=== PATIENT | female | born 1950 | race Caucasian/White ===

== ENCOUNTER → 2018-07-24 09:46 | Outpatient (CLI) | payer OTHER, SELFPAY ==
[2018-07-24 11:32] LABS: Blood Urea Nitrogen 26 mg/dL (7-17); Calcium 9.9 mg/dL (8.4-10.2); Carbon Dioxide 30 mmol/L (22-32); Chloride 102 mmol/L (98-107); Estimated Glomerular Filt Rate 55.3 mL/min (>60); Glucose 95 mg/dL (80-110); HEMOLYSIS < 15 (0-50); Potassium 4.3 mmol/L (3.4-5.1); Sodium 143 mmol/L (137-145)
== END ==
PROVIDERS: PCP Internal Medicine; Visit Provider Internal Medicine
DX: I10 Essential (primary) hypertension (principal)
CPT/HCPCS: 36415; 80048

== ENCOUNTER → 2018-07-28 09:44 | Outpatient (CLI) | payer OTHER, SELFPAY ==
--- NOTE | 2018-07-28 | DI.US.S_ITS ---
PROCEDURE: US CAROTID DOPPLER BI INDICATIONS: HYPERTENSION TECHNIQUE: Color and pulse Doppler interrogation was performed of both carotid systems, with image documentation and velocity measurements. COMPARISON: None. FINDINGS: Stenosis calculations are based on SRU (Society of Radiologists in Ultrasound) criteria. Right side: Brachial blood pressure: 138/87 mm Hg. Common carotid artery peak systolic velocity: 77 cm/sec. Internal carotid artery peak systolic velocity: 88 cm/sec. Internal carotid artery end diastolic velocity: 29 cm/sec. External carotid artery peak systolic velocity: 68 cm/sec. ICA/CCA peak systolic ratio: 1.2. Castro scale imaging description: Mild calcific and soft plaque Percent internal carotid artery stenosis: Less than 50% stenosis. Vertebral artery: Flow direction is antegrade. Left side: Brachial blood pressure: 139/86 mm Hg. Common carotid artery peak systolic velocity: 87 cm/sec. Internal carotid artery peak systolic velocity: 100 cm/sec. Internal carotid artery end diastolic velocity: 42 cm/sec. External carotid artery peak systolic velocity: 52 cm/sec. ICA/CCA peak systolic ratio: 1.1. Castro scale imaging description: A mild soft plaque Percent internal carotid artery stenosis: Less than 50% stenosis. Vertebral artery: Flow direction is antegrade. Additionally, on the left a thyroid nodule was identified with both soft tissue and calcified components, heterogeneous, measuring up to 2.3 x 1.7 x 1.7 cm. Biopsy appears warranted. IMPRESSION: 1. Less than 50% stenosis at the proximal internal carotid arteries bilaterally. 2. Note was made of a left thyroid calcified and soft tissue nodule measuring up to 2.3 x 1.7 x 1.7 cm, which warrants additional dedicated thyroid ultrasound and consideration of biopsy. Dictated by: Iker Santiago M.D. on 07/28/2018 at 12:50 Approved by: Iker Santiago M.D. on 07/28/2018 at 12:52
== END ==
PROVIDERS: PCP Internal Medicine; Visit Provider Internal Medicine
DX: I10 Essential (primary) hypertension (principal)
CPT/HCPCS: 93880

== ENCOUNTER → 2018-08-14 11:49 | Outpatient (CLI) | payer OTHER, SELFPAY ==
--- NOTE | 2018-08-14 | DI.MG.S_ITS ---
BILATERAL DIGITAL SCREENING MAMMOGRAM 3D/2D WITH CAD: 08/14/2018 CLINICAL: Routine screening. Comparison is made to exams dated: 03/11/2017 mammogram, 01/03/2015 mammogram, and 07/27/2011 mammogram - [facility]. There are scattered fibroglandular elements in both breasts. Current study was also evaluated with a Computer Aided Detection (CAD) system. No significant masses, calcifications, or other findings are seen in either breast. There has been no significant interval change. IMPRESSION: NEGATIVE There is no mammographic evidence of malignancy. A 1 year screening mammogram is recommended. This exam was interpreted at Station ID: [id number]. NOTE: For mammograms, a report in lay terms will be sent to the patient. Approximately 15% of breast malignancies will not be visualized mammographically. In the management of a palpable breast mass, a negative mammogram must not discourage biopsy of a clinically suspicious lesion. Electronically Signed By: Ely jean/j luis:08/14/2018 12:24:13 letter sent: Normal Exam ACR BI-RADS Category 1: Negative [id number]
== END ==
PROVIDERS: Family Provider Internal Medicine; PCP Internal Medicine; Visit Provider Internal Medicine
DX: Z12.31 Encounter for screening mammogram for malignant neoplasm of breast (principal)
CPT/HCPCS: 77063; 77067

== ENCOUNTER → 2018-08-15 11:08 | Outpatient (CLI) | payer OTHER, SELFPAY ==
--- NOTE | 2018-08-15 | DI.US.S_ITS ---
PROCEDURE: US THYROID INDICATIONS: Nontoxic single thyroid nodule TECHNIQUE: Real-time scanning was performed of the thyroid gland, with image documentation. COMPARISON: None. FINDINGS: Right: Thyroid lobe measures 3.8 x 1.0 x 1.4 cm, and is homogeneous in echotexture. Left: Thyroid lobe measures 4.8 x 1.4 x 1.8 cm, and is homogenous in echotexture. Isthmus: 2 mm thick. Nodule number: 1 Location: Mid to inferior left thyroid lobe Size: 1.7 x 1.6 x 2.1 cm. Composition: Solid Echogenicity: Hypoechoic Shape: wider than tall. Margins: Smooth Echogenic foci: present Total points: 6 ACR TI-RADS category: 4 Nodule number: 2 Location: Inferior right thyroid lobe Size: 7 x 7 x 6 mm. Composition: Solid Echogenicity: Hypoechoic Shape: wider than tall. Margins: Smooth Echogenic foci: none Total points: 4 ACR TI-RADS category: 4 IMPRESSION: 1. Moderately suspicious thyroid nodule in mid to Inferior pole of the left thyroid lobe. Fine needle aspiration biopsy under ultrasound guidance is suggested. 2. Moderately suspicious small inferior pole right thyroid nodule. Ultrasound followup is suggested at 1, 2, 3 and 5 years. ACR TI-RADS definitions and recommendations: TI-RADS 1 (benign): 0 points. FNA not needed. TI-RADS 2 (not suspicious): 2 points. FNA not needed. TI-RADS 3 (mildly suspicious): 3 points. * FNA if 2.5 cm or larger, follow up if 1.5 cm or larger (at 1, 3, and 5 years). TI-RADS 4 (moderately suspicious): 4-6 points. * FNA if 1.5 cm or larger, follow up if 1 cm or larger (at 1, 2, 3, and 5 years). TI-RADS 5 (highly suspicious): 7 points or more. * FNA if 1 cm or larger, follow up if 0.5 cm or larger (every year for 5 years). Dictated by: Norma Turk M.D. on 08/15/2018 at 12:39 Approved by: Norma Turk M.D. on 08/15/2018 at 12:48
== END ==
PROVIDERS: Family Provider Internal Medicine; PCP Internal Medicine; Visit Provider Internal Medicine
DX: E04.2 Nontoxic multinodular goiter (principal)
CPT/HCPCS: 76536

== ENCOUNTER → 2018-08-29 12:47 | Outpatient (CLI) | payer OTHER, SELFPAY ==
--- NOTE | 2018-08-29 | PATH_ITS ---
Note [facility] Accession Number: [id number] TESTS RESULT FLAG UNITS REF RANGE LAB Clinician Provided Cytology Information No. of containers..01 ThinPrep Vial No. of containers..18 Previously Prepared Cytology Slide LT THYROID NODULE DIAGNOSIS: LEFT THYROID NODULE: [place] CATEGORY I. NONDIAGNOSTIC: ACELLULAR SPECIMEN. Pathologist ICD10: 02 E04.1 02 Babita Thompson MD, Pathologist NPI- [id number] Matheus Bradshaw, Blade Worker ([facility]) 01 30 CC, COLORLESS, CLEAR REC'D 9 ALCOHOL FIXED SLIDES AND 9 QUICK STAINED SLIDES AND 1 RNA VIAL FOR FURTHER TESTING. /VANCE FLAG LEGEND: L-Low Normal,H-High Normal,LL-Alert Low,HH-Alert High <-Panic Low,>-Panic High,A-Abnormal,AA-Critical Abnormal Performed at: 01 =Z [facility] [address], [place] [address] Renny Kraus MD, 02 [facility] [address] [place] [id number] Babita Thompson MD, Performed at: 01 [facility] [address], [place], [place] [id number] MD Renny Kraus MD Phone: [phone]
--- NOTE | 2018-08-29 | DI.US.S_ITS ---
PROCEDURE: US FINE NEEDLE ASPIRATION INDICATIONS: LEFT THYROID NODULE TECHNIQUE: The indications, alternatives, benefits, risks, and complications of the procedure were explained to the patient. Written informed consent was obtained and placed in the chart. The thyroid region was examined sonographically and a site was chosen for ultrasound guided percutaneous sampling. The skin was prepared and draped in the usual fashion, and anesthetized with 1% lidocaine infiltrated from the skin down to the thyroid gland. Multiple passes were then performed, with contents emptied into an appropriate pathology specimen container. A bandage was applied to the area of access at completion of the study. COMPARISON: None. FINDINGS: Location(s) of lesion(s) sampled: Dominant nodule lower half of the left thyroid lobe [place]: 25 gauge hypodermic needles. Number of passes: 10 Medications: 1% lidocaine for local anaesthesia. Complications: None. IMPRESSION: Successful ultrasound-guided thyroid nodule fine needle aspiration, with cytology results pending. Please see chart below for management recommendations based on cytology results. [place] [facility] ReportingRecommendationsNon-diagnostic* Repeat US-guided FNA, with on-site cytology evaluation if possible. * Repeated non-diagnostic nodules without high suspicion US features: close observation vs surgical consult. * Consider surgery if nodule has high suspicion US features, grows >20% in 2 dimensions on followup, or patient has clinical risk factors for malignancy. Benign* If nodule has high suspicion US features: repeat US and FNA within 12 months. * If nodule has low to intermediate suspicion US features: repeat US at 12-24 months. If nodule grows (20% increase in at least 2 dimensions, with minimal increase of 2 mm or >50% change in volume), or development of new suspicious US features, then repeat FNA or continue followup. * If nodule has very low suspicion US features: followup US at >24 months. Atypia of undetermined significance, follicular lesion of undetermined significanceRepeat FNA, molecular testing, followup US, or surgical consult.Follicular neoplasm, suspicious for follicular neoplasmSurgical consult; also consider molecular testing. Suspicious for malignancySurgical consult.MalignantSurgical consult. Dictated by: Iker Santiago M.D. on 08/29/2018 at 15:06 Approved by: Iker Santiago M.D. on 08/29/2018 at 15:07
== END ==
PROVIDERS: PCP Internal Medicine; Visit Provider Internal Medicine
DX: E04.1 Nontoxic single thyroid nodule (principal)
CPT/HCPCS: 10022; 76942

== ENCOUNTER → 2018-11-27 11:09 | Outpatient (CLI) | payer OTHER, SELFPAY ==
--- NOTE | 2018-11-27 | DI.RAD.S_ITS ---
PROCEDURE: FL BARIUM SWALLOW INDICATIONS: GERD COMPARISON: [facility] , BARIUM SWALLOW, 12/21/2011, 8:38. FINDINGS: Function: Normal swallowing mechanism. Numerous mild tertiary contractions of the distal esophagus in the upright position. There was normal esophageal motility in the recumbent position, however there was small to moderate amount of inducible gastroesophageal reflux. Morphology: No proximal esophageal diverticula. Air-contrast images demonstrate normal mucosal morphology. Single contrast views show no esophageal strictures, extrinsic mass effects, or diverticula. No hiatal hernia. Limited images of the stomach demonstrate normal appearance. Surgical clips in the gallbladder fossa. IMPRESSION: Small to moderate amount of gastroesophageal reflux in the recumbent position, but no hiatal hernia. Tertiary contractions in the distal esophagus without intraesophageal reflux. Dictated by: Reta Diehl M.D. on 11/27/2018 at 12:15 Approved by: Reta Diehl M.D. on 11/27/2018 at 12:26
== END ==
PROVIDERS: PCP Internal Medicine; Visit Provider Otolaryngology
DX: K21.9 Gastro-esophageal reflux disease without esophagitis (principal)
CPT/HCPCS: 74220

== ENCOUNTER 2019-01-11 08:23 | Day surgery (SDC) | payer OTHER, SELFPAY ==
[2019-01-11] VITALS (20 sets, daily range): BP systolic 114–167; BP diastolic 68–107; PULSE 64–132; RESP 10–18; TEMP 36–36.8; O2SAT 94–99; BMI 32.2
[2019-01-11] MEDS: SODIUM CHLORIDE 0.9% 1,000 ML 100 ML IV (09:22)
--- NOTE | 2019-01-11 10:53 | PM.HP.1 ---
History of Present Illness Date Patient Seen: 01/11/19 Time Patient Seen: 10:53 Chief complaint: Colonoscopy Narrative: Wonderful 68-year-old lady who presents for his 1st screening colonoscopy. She denies any problems or symptoms related to the function of her GI tract. She reports she is feeling well this morning and is ?in the zone?. She denies any family history of colon or rectal malignancy or any other GI malignancy. Patient History Social History household members: spouse and significant other Family & Social History Social History: household members spouse,significant other Meds Home Medications Medication Instructions Recorded Confirmed Type Crestor 20 mg PO DAILY 01/11/19 01/11/19 History Allergies Allergy/AdvReac Type Severity Reaction Status Date / Time No Known Drug Allergies Allergy Verified 01/11/19 09:04 Review of Systems Review of Systems All systems reviewed & are unremarkable except as noted in HPI and below Exam Vital Signs (past 8 hours): - 01/11/19 09:05 Temperature 97.6 F Pulse Rate 74 Respiratory Rate 15 Blood Pressure 138/82 Pulse Oximetry 99 Oxygen Delivery Method Room Air Narrative Exam Narrative: One full 68-year-old lady who appears younger than her stated age HEENT: Normocephalic and atraumatic, pupils equal round reactive to light accommodation with anicteric sclera Lungs: Clear bilaterally Heart: Regular rate and rhythm Abdomen: Soft, nontender, active bowel sounds Extremities: Warm well perfused Assessment & Plan Assessment & Plan narrative: Wonderful 68-year-old lady here for her 1st screening colonoscopy. We discussed the risks and benefits of colonoscopy and the patient expressed a desire to complete the procedure today.
[2019-01-11] MEDS: MIDAZOLAM 5 MG/5 ML VIAL IV (11:00)
[2019-01-11] MEDS: fentaNYL 250 MCG/5 ML INJ IV (11:00)
--- NOTE | 2019-01-11 11:21 | PM.OP.1 ---
Operative Date/Time/Diagnoses Date of procedure: 01/11/19 Time of procedure: 11:21 Pre-op diagnosis: Screening Post-op diagnosis: same Procedure & Clinicians Procedure: Colonoscopy to the cecum Same procedure as scheduled: Yes Indications: No prior colonoscopy Surgeon: Annabel King Anesthesia Type: Sedation (Versed 8 mg; fentanyl 250 micro g) Operative Notes Findings: 1. Adequate prep 2. No polyps or mass lesions 3. No AV malformations 4. Tortuous sigmoid and transverse colons 5. Decreased external anal sphincter tone 6. Grade 1 internal hemorrhoids Closure Type: not applicable Specimen(s): none sent Procedure in detail: After obtaining informed consent, the patient was brought to the GI suite and placed in the left lateral decubitus position on the examination table. After placement of appropriate monitors, the patient was given incremental doses of Versed and Fentanyl until an appropriate level of sedation was achieved. A time out was held per SCOAP protocol. A digital rectal examination was performed and did not reveal any masses or obstructing lesions. The colonoscope was gently passed into the patient's anus and the entire colon navigated to the level of the cecum with mild difficulty due to colon tortuosity. Once in the cecum, the scope was withdrawn being sure to go before and beyond all mucosal folds and prominences and get an excellent examination. The findings are noted above. At the level of the rectal vault, the scope was retroflexed and the internal anal canal was examined. The scope was straightened and air aspirated from the colon. The instrument was removed from the patient's body and the procedure was concluded. The patient was allowed to awaken from sedation without difficulty and taken to the post-anesthesia care unit in good condition. Total sedation time was 23 minutes Total withdrawal time was 11 minutes Complications: none Condition: stable Disposition: PACU Plan for aftercare: 1. Discharge to home 2. Plan for next colonoscopy in 10 years or as clinically indicated
[2019-01-11] MEDS: ONDANSETRON 4 MG/2 ML INJ IV (11:43)
[2019-01-11] MEDS: METOCLOPRAMIDE 10 MG/2 ML INJ IV (12:46)
--- NOTE | 2019-01-11 13:41 | SUR.PHASEI ---
pt continues to have nausea and vomiting (dry heaves), Dr King is aware, orders received, comfort measures continue
[2019-01-11] MEDS: DRONABINOL 2.5 MG CAPSULE PO (14:00)
--- NOTE | 2019-01-11 14:09 | SUR.PHASEI ---
DR BLACKBURN CALLED AND NOTIFIED OF PTS HR (SINUS ARRYTHMIA, HR 110-132) PT CONTINUES TO HAVE N/V, DENIES ANY CHEST PAIN OR SOB, WILL GIVE DECADRON FOR N/V AND GET EKG.
[2019-01-11] MEDS: DEXAMETHASONE 10 MG/ML VIAL 4 MG IV (14:10)
--- NOTE | 2019-01-11 14:48 | SUR.PHASEI ---
PT DENIES ANY CHEST PAIN OR SOB, CONTINUES TO HAVE IRREGULAR HR 100'S -130'S VOIDED APPROX 300CC IN BEDPAN, CONTINUES TO HAVE NAUSEA AND DRY HEAVES, DR BLACKBURN NOTIFIED OF EKG RESULTS, WILL TRANSFER PT TO ER. PT TO ER, BEDSIDE REPORT TO ASSISTANT PRINTER FLOOR COVERING.
== END 2019-01-11 14:39 | disposition home or self-care (01) ==
PROVIDERS: PCP Internal Medicine; Visit Provider Surgery
PROC: 0DJD8ZZ Inspection of Lower Intestinal Tract, Via Natural or Artificial Opening Endoscopic (ICD-10-PCS; CPT 45378; principal; 2019-01-11 10:45)
DX: Z12.11 Encounter for screening for malignant neoplasm of colon (principal); K64.0 First degree hemorrhoids; R11.2 Nausea with vomiting, unspecified; R00.2 Palpitations; I48.91 Unspecified atrial fibrillation; T41.45XA Adverse effect of unspecified anesthetic, initial encounter
CPT/HCPCS: G0121; 36415; 71045; 80053; 82550; 83690; 84484; 85025; 85610; 85730; 93005; 96361; 96374; 96375; 96376; 99152; 99285; J0780; J1100; J1200; J2250; J2405; J2765; J3010

== ENCOUNTER 2019-01-11 14:40 | Emergency (ER) | payer OTHER, SELFPAY ==
[2019-01-11] VITALS (9 sets, daily range): BP systolic 113–166; BP diastolic 66–108; PULSE 95–127; RESP 14–18; TEMP 36.4; O2SAT 92–96
--- NOTE | 2019-01-11 14:53 | DI.RAD.S_ITS ---
PROCEDURE: XR CHEST 1V INDICATIONS: chest pain TECHNIQUE: One view of the chest was acquired. COMPARISON: None. FINDINGS: Surgical changes and devices: None. Lungs and pleura: Lungs are clear. No pleural effusions or pneumothorax. Mediastinum: Mediastinal contours appear normal. Heart size is normal. Bones and chest wall: No suspicious bony lesions. Overlying soft tissues appear unremarkable. IMPRESSION: No acute cardiopulmonary disease. Dictated by: Norma Turk M.D. on 01/11/2019 at 15:25 Approved by: Norma Turk M.D. on 01/11/2019 at 15:28
[2019-01-11] MEDS: diphenhydrAMINE 50 MG/ML VIAL 12.5 MG IV (15:19)
[2019-01-11] MEDS: PROCHLORPERAZINE 10 MG/2 ML VIAL IV (15:19)
[2019-01-11] MEDS: dilTIAZem 5 MG/ML SDV 20 MG IV (15:20)
--- NOTE | 2019-01-11 15:31 | ED_ITS ---
HPI - Arrhythmia/Palpitations General Chief Complaint: Arrhythmia/Palpitations Stated Complaint: Afib Time Seen by Provider: 01/11/19 14:55 Source: patient Mode of arrival: wheelchair Limitations: no limitations History of Present Illness HPI narrative: Patient presents emergency department complaining of nausea and vomiting since undergoing anesthesia for a colonoscopy today. Patient states it was a routine colonoscopy, and that she was not having any symptoms whatsoever, prior to the procedure. She states that in the past, she has had issues with nausea and vomiting after general anesthesia. Patient denies fevers or abdominal pain. she states she has not eaten in 2 days, due to the upcoming procedure. No sick contacts. No chest pain or shortness of breath. patient has been feeling as though her heart is racing. EKG was done in the PACU, and patient was found to be in AFib with RVR. At that point, she was sent down to the emergency department. Patient states that she was taken back to the op erating room for her procedure at about 11:00 a.m. Related Data Home Medications Medication Instructions Recorded Confirmed Crestor 20 mg PO DAILY 01/11/19 01/11/19 Previous Rx's Medication Instructions Recorded diltiazem HCl [Cardizem CD] 240 mg PO DAILY #10 cap 01/11/19 ondansetron 4 mg PO QID PRN #10 tab 01/11/19 Allergies Allergy/AdvReac Type Severity Reaction Status Date / Time No Known Drug Allergies Allergy Verified 01/11/19 14:41 Review of Systems Constitutional Denies chills, Denies fever(s), Denies lethargy and Denies weakness Eyes Denies change in vision, Denies eye discharge, Denies irritation and Denies loss of vision ENT Ears, Nose, Mouth, and Throat: Denies change in voice, Denies neck pain and Denies sore throat Cardiovascular Denies chest pain, Denies irregular heart rhythm, Denies lightheadedness, Reports palpitations, Denies dyspnea, Denies dyspnea on exertion and Denies orthopnea Respiratory Denies cough, Denies dyspnea, Denies dyspnea on exertion and Denies wheezing Gastrointestinal Gastrointestinal: Denies abdominal pain, Denies change in bowel habits, Denies diarrhea, Reports nausea and Reports vomiting Genitourinary Denies hematuria, Denies flank pain, Denies urinary incontinence and Denies urinary urgency Musculoskeletal Denies neck pain Integumentary/Breasts Denies pruritus, Denies erythema, Denies rash and Denies wounds Neurologic Denies confusion, Denies loss of vision and Denies weakness Psychiatric Denies anxiety, Denies confusion, Denies depression, Denies homicidal ideation and Denies suicidal ideation Endocrine Reports palpitations Hematologic/Lymphatic Denies easy bruising Allergic/Immunologic Denies wheezing [facility] Medical History Healthy adult (Acute) Surgical History Status post colonoscopy (Acute) Social History household members: spouse and significant other Smoking Status: Unknown if ever smoked Family History Father Atrial fibrillation Brother Atrial fibrillation Social History household members: spouse and significant other Smoking Status: Unknown if ever smoked Exam Initial Vital Signs Initial Vital Signs: Vital Signs Temperature 97.6 F 01/11/19 14:42 Pulse Rate 127 H 01/11/19 14:42 Respiratory Rate 18 01/11/19 14:42 Blood Pressure 166/98 H 01/11/19 14:42 Pulse Oximetry 95 01/11/19 14:42 Const General: cooperative and well developed Nutritional Appearance: well nourished Orientation: alert, awake, oriented x3 and not confused Other: Patient appears uncomfortable but otherwise no apparent distress. [facility] Head: normocephalic and atraumatic Ears: external ears normal Nose: external nose normal and No nasal discharge Face and sinus: face symmetric and No dry mucous membranes Mouth: oral mucosae normal and moist mucous membranes Teeth and gingiva: dentition normal Eyes General: appearance normal, both eyes and all related structures Eyelids: eyelids normal Conjunctivae: conjunctivae normal Sclera: sclerae normal Pupils: PERRL EOM: EOM intact bilaterally Neck Neck: normal visual inspection, trachea midline, No lymphadenopathy, No midline deformity and No JVD Lymphatic: No lymphedema Chest Chest: normal inspection of the chest Resp Effort & Inspection: normal respiratory effort, able to speak in complete senten dustin, no respiratory distress and no use of accessory muscles Auscultation: clear to auscultation bilaterally, no rales, no rhonchi and no wheezes Cardio Rate: tachycardic Rhythm: abnormal rhythm irregularly irregular Heart Sounds: no click, no gallops, no murmurs and no rubs Pulses: normal peripheral pulses GI Inspection: non-distended Palpation: soft, no hepatosplenomegaly, No guarding, No pulsatile mass and No tender Back/Spine/Pelvis Back: No CVA tenderness Cervical Spine: cervical ROM normal and No pain with cervical ROM Thoracic/Lumbar Spine: thoracic and lumbar spine normal to inspection Skin General: no rashes or lesions noted, No jaundice and No petechiae Neuro General: alert, oriented x3, gait normal and no focal motor deficits Speech: speech normal Extrem General: full ROM, no clubbing, cyanosis or edema, no pedal edema and no calf tenderness Psych Appearance: well kempt Mental Status: mental status grossly normal Attitude: cooperative Thought Content: normal and suicidality Judgment: judgment good Course Course Narrative: Patient was treated with IV fluids, Compazine, and Benadryl in the emergency department for symptomatic relief. She was treated with diltiazem for her atrial fibrillation with RVR. She was worked up with labs and EKG, which were unremarkable, other than the atrial fibrillation. Patient was found to be feeling much better after treatment in the emergency department. Her heart rate did respond well to the Cardizem. She was given an oral dose prior to discharge, and a prescription for home and I discussed with her that she will need to follow up with her primary doctor and possibly cardiology regarding the atrial fib. Patient has noted that this does run in her family, but as she has never been diagnosed with this before, she will most likely need to have further evaluation. We have discussed the usual indications for return. Orders Ordered: Discontinued Medications Diltiazem HCl (Cardizem) 20 mg IV NOW ONE Stop: 01/11/19 15:17 Last Admin: 01/11/19 15:20 Dose: 20 mg Diltiazem HCl (Cardizem Cd) 240 mg PO NOW ONE Stop: 01/11/19 17:29 Last Admin: 01/11/19 17:35 Dose: 240 mg Diphenhydramine HCl (Benadryl) 12.5 mg IV NOW ONE Stop: 01/11/19 15:17 Last Admin: 01/11/19 15:19 Dose: 12.5 mg Sodium Chloride (Normal Saline 0.9%) 1,000 mls @ 1,000 mls/hr IV BOLUS ONE Stop: 01/11/19 16:25 Last Infusion: 01/11/19 16:30 Dose: 0 mls/hr Admin: 01/11/19 15:35 Dose: 1,000 mls/hr Prochlorperazine (Compazine) 10 mg IV NOW ONE Stop: 01/11/19 15:17 Last Admin: 01/11/19 15:19 Dose: 10 mg Vital Signs - 8 hr 01/11/19 14:42 01/11/19 15:05 01/11/19 15:19 Temperature 97.6 F Pulse Rate 127 H 124 H 124 H Respiratory Rate 18 15 Blood Pressure 166/98 H 136/108 H Blood Pressure [Left Arm] 138/108 H Pulse Oximetry 95 96 01/11/19 15:20 01/11/19 16:00 01/11/19 16:30 Temperature Pulse Rate 126 H 97 H 95 H Respiratory Rate 14 15 Blood Pressure 136/108 H Blood Pressure [Left Arm] 120/71 113/66 Pulse Oximetry 96 94 01/11/19 17:15 01/11/19 17:30 01/11/19 17:55 Temperature Pulse Rate 110 H 120 H 111 H Respiratory Rate 18 17 16 Blood Pressure 141/95 H Blood Pressure [Left Arm] 141/95 H 132/77 Pulse Oximetry 93 92 95 MDM - Arrhythmia/Palpitations Medical Records Attestation: I reviewed the patient's medical records. Lab Data Attestation: I reviewed the patient's lab results. Result diagrams: 01/11/19 15:20 01/11/19 15:20 Lab Results 01/11/19 01/11/19 01/11/19 Range/Units 15:20 15:20 15:20 WBC 10.3 (4.5-11.0) X10^3/uL RBC 4.86 (4.0-5.2) X10^6/uL Hgb 14.4 (12.0-16.0) g/dL Hct 43.4 (36-46) % MCV 89.3 (80-100) fL MCH 29.6 (26-34) PG MCHC 33.1 (30-36) % RDW 13.9 (11.6-14.8) % Plt Count 208 (150-400) X10^3/uL Neut % (Auto) 88.9 H (50-75) % Lymph % (Auto) 7.9 L (25-40) % [place] % (Auto) 2.5 L (3-14) % Eos % (Auto) 0.1 L (2-4) % Baso % (Auto) 0.6 (0-2) % Neut # (Auto) 9100 H (3208-2028) /uL Lymph # (Auto) 800 L (6773-4415) /uL [place] # (Auto) 300 (0-900) /uL Eos # (Auto) 0 (0-450) /uL Baso # (Auto) 100 (0-100) /uL PT 12.0 (10.1-12.7) SECONDS INR 1.0 (0.9-1.3) APTT 34 (26.4-36.2) SECONDS Sodium 140 (137-145) mmol/L Potassium 4.1 (3.4-5.1) mmol/L Chloride 106 (98-107) mmol/L Carbon Dioxide 24 (22-32) mmol/L BUN 10 (7-17) mg/dL Creatinine 0.70 (0.52-1.04) mg/dL Estimated GFR > 60.0 (>60) mL/min BUN/Creatinine Ratio 14.3 (6-22) Glucose 137 H (80-110) mg/dL Calcium 9.3 (8.4-10.2) mg/dL Total Bilirubin 0.6 (0.2-1.3) mg/dL AST 32 (14-36) IU/L ALT 37 (9-52) IU/L Alkaline Phosphatase 82 (38-126) U/L Total Creatine Kinase 58 (30-135) U/L CK-MB (CK-2) TNP CK-MB (CK-2) Rel Index TNP Troponin I < 0.012 (0.01-0.034) ng/mL Total Protein 8.0 (6.3-8.2) g/dL Albumin 4.7 (3.5-5.0) g/dL Globulin 3.3 (1.7-4.1) g/dL Albumin/Globulin Ratio 1.4 (1.0-2.8) Lipase 30 (23-300) U/L Imaging Data Chest x-ray: Radiologist's impression: PROCEDURE: XR CHEST 1V INDICATIONS: chest pain TECHNIQUE: One view of the chest was acquired. COMPARISON: None. FINDINGS: Surgical changes and devices: None. Lungs and pleura: Lungs are clear. No pleural effusions or pneumothorax. Mediastinum: Mediastinal contours appear normal. Heart size is normal. Bones and chest wall: No suspicious bony lesions. Overlying soft tissues appear unremarkable. IMPRESSION: No acute cardiopulmonary disease. Dictated by: Norma Turk M.D. on 01/11/2019 at 15:25 Approved by: Norma Turk M.D. on 01/11/2019 at 15:28 Discharge Plan Departure Patient Disposition: Home Clinical Impression: Atrial fibrillation Qualifiers: Atrial fibrillation type: unspecified Qualified Code(s): I48.91 - Unspecified atrial fibrillation Adverse reaction to anesthetic agent Qualifiers: Encounter type: initial encounter Qualified Code(s): T41.45XA - Adverse effect of unspecified anesthetic, initial encounter Discharge Date/Time: 01/11/19 17:56 Interventions: ED Discharge Assessment Last Done: 01/11/19 17:55 Instructions: DI for Atrial Fibrillation Activity Restrictions/Additional Instructions: You have had a reaction to your anesthesia, and have also been found to be in atrial fibrillation, an irregular heart rhythm. We have started you on a medication for this, but you will need to follow up with your primary doctor and possibly, cardiology to determine further management. Please call your primary doctor's office tomorrow morning to set up an appointment to be seen as soon as possible to follow up your Emergency Department visit. Please take the nausea medicine, as needed for nausea, and the Cardizem for your atrial fibrillation. If you develop shortness of breath or chest pain, or if you notice that your heart is racing uncontrollably, you should return to the emergency department immediately. Prescriptions: New diltiazem HCl [Cardizem CD] 240 mg capsule,extended release 24hr 240 mg PO DAILY Qty: 10 RF: 0 ondansetron 4 mg tablet,disintegrating 4 mg PO QID PRN (Reason: nausea and vomiting) Qty: 10 RF: 0 No Action Crestor 20 mg PO DAILY RF: 0 Referrals: Syd Seals MD [Primary Care Provider] -
[2019-01-11 15:34] LABS: Add Manual Diff / Slide Review NO; Basophils Absolute Auto 100 /uL (0-100); Basophils Percent Auto 0.6 % (0-2); Eosinophils Absolute Auto 0 /uL (0-450); Eosinophils Percent Auto 0.1 % (2-4); Hematocrit 43.4 % (36-46); Hemoglobin 14.4 g/dL (12.0-16.0); Lymphocytes Absolute Auto 800 /uL (1100-4500); Lymphocytes Percent Auto 7.9 % (25-40); Mean Corpuscular HGB Conc 33.1 % (30-36); Mean Corpuscular Hemoglobin 29.6 PG (26-34); Mean Corpuscular Volume 89.3 fL (80-100); Monocytes Absolute Auto 300 /uL (0-900); Monocytes Percent Auto 2.5 % (3-14); Neutrophils Absolute Auto 9100 /uL (1500-7000); Neutrophils Percent Auto 88.9 % (50-75); Platelet Count 208 X10^3/uL (150-400); Red Blood Cell Count 4.86 X10^6/uL (4.0-5.2); Red Cell Distribution Width 13.9 % (11.6-14.8); White Blood Cell Count 10.3 X10^3/uL (4.5-11.0)
[2019-01-11] MEDS: SODIUM CHLORIDE 0.9% 1,000 ML 1000 ML IV (15:35)
[2019-01-11 15:51] LABS: PTT Partial Thromboplastin Tim 34 SECONDS (26.4-36.2)
[2019-01-11 15:53] LABS: Alanine Aminotransferase 37 IU/L (9-52); Albumin 4.7 g/dL (3.5-5.0); Albumin Globulin Ratio 1.4 (1.0-2.8); Alkaline Phosphatase 82 U/L (38-126); Aspartate Aminotransferase 32 IU/L (14-36); BUN Creatinine Ratio 14.3 (6-22); Bilirubin Total 0.6 mg/dL (0.2-1.3); Blood Urea Nitrogen 10 mg/dL (7-17); Calcium 9.3 mg/dL (8.4-10.2); Carbon Dioxide 24 mmol/L (22-32); Chloride 106 mmol/L (98-107); Creatine Kinase 58 U/L (30-135); Estimated Glomerular Filt Rate > 60.0 mL/min (>60); Globulin 3.3 g/dL (1.7-4.1); Glucose 137 mg/dL (80-110); HEMOLYSIS < 15 (0-50); Lipase 30 U/L (23-300); Potassium 4.1 mmol/L (3.4-5.1); Sodium 140 mmol/L (137-145)
[2019-01-11 16:04] LABS: Troponin I < 0.012 ng/mL (0.01-0.034)
--- NOTE | 2019-01-11 17:25 | PC.NURSE ---
HAM FACER Note: Assisted patient with bedside commode. Tolerated very well. Did not state any discomfort and did not see any noticeable changes or signs of distress with standing.
[2019-01-11] MEDS: dilTIAZem CD 240 MG CAP PO (17:35)
== END 2019-01-11 17:56 | disposition home or self-care (01) ==
PROVIDERS: Emergency Provider Emergency Medicine; PCP Internal Medicine
DX: I48.91 Unspecified atrial fibrillation (principal); R11.2 Nausea with vomiting, unspecified; T41.45XA Adverse effect of unspecified anesthetic, initial encounter
CPT/HCPCS: 36415; 71045; 80053; 82550; 83690; 84484; 85025; 85610; 85730; 93005; 96361; 96374; 96375; 96376; 99284; 99285; J0780; J1200

== ENCOUNTER → 2019-05-08 09:02 | Outpatient (CLI) | payer OTHER, SELFPAY ==
--- NOTE | 2019-05-08 | DI.US.S_ITS ---
PROCEDURE: US THYROID INDICATIONS: FOLLOW-UP NODULES TECHNIQUE: Real-time scanning was performed of the thyroid gland, with image documentation. COMPARISON: [facility], US, US THYROID, 08/15/2018, 11:26. FINDINGS: Right: Thyroid lobe measures 4.5 x 1.4 x 1.5 cm, and is homogeneous in echotexture. Left: Thyroid lobe measures 4.4 x 1.6 x 2.2 cm, and is homogenous in echotexture. Isthmus: 1-2 mm thick. Nodule number: 1 Location: Left inferior pole Size: 2.3 x 1.6 x 1.6 cm. (previously 1.7 x 1.6 x 2.1 cm) Composition: Solid Echogenicity: Hypoechoic Shape: wider than tall. Margins: Smooth, with peripheral calcification. Echogenic foci: None Total points: 4 ACR TI-RADS category: Moderately suspicious Nodule number: 2 Location: Right inferior pole Size: 0.8 x 0.8 x 0.5 cm. (previously 0.7 x 0.7 x0.6 cm) Composition: Solid Echogenicity: Isoechoic Shape: wider than tall. Margins: Smooth Echogenic foci: None Total points: 3 ACR TI-RADS category: Mildly suspicious IMPRESSION: Bilateral thyroid nodules. Further evaluation of the left thyroid nodule with ultrasound guided fine needle aspiration recommended. ACR TI-RADS definitions and recommendations: TI-RADS 1 (benign): 0 points. FNA not needed. TI-RADS 2 (not suspicious): 2 points. FNA not needed. TI-RADS 3 (mildly suspicious): 3 points. * FNA if 2.5 cm or larger, follow up if 1.5 cm or larger (at 1, 3, and 5 years). TI-RADS 4 (moderately suspicious): 4-6 points. * FNA if 1.5 cm or larger, follow up if 1 cm or larger (at 1, 2, 3, and 5 years). TI-RADS 5 (highly suspicious): 7 points or more. * FNA if 1 cm or larger, follow up if 0.5 cm or larger (every year for 5 years). Dictated by: Timbo Richardson M.D. on 05/08/2019 at 13:04 Approved by: Timbo Richardson M.D. on 05/08/2019 at 13:08
== END ==
PROVIDERS: PCP Internal Medicine
DX: E04.2 Nontoxic multinodular goiter (principal)
CPT/HCPCS: 76536

== ENCOUNTER → 2020-04-24 10:40 | Outpatient (CLI) | payer OTHER, SELFPAY ==
--- NOTE | 2020-04-24 | DI.US.S_ITS ---
PROCEDURE: US THYROID INDICATIONS: NONTOXIC SINGLE THYROID NODULE TECHNIQUE: Real-time scanning was performed of the thyroid gland, with image documentation. COMPARISON: [facility], US, US THYROID, 05/08/2019, 9:31. FINDINGS: Right: Thyroid lobe measures 4.2 x 1.3 x 1.2 cm, and is homogeneous in echotexture. Left: Thyroid lobe measures 5.0 x 1.5 x 1.9 cm, and is homogenous in echotexture. Isthmus: 1.8 mm thick. Nodule number: 1 Location: Left inferior Size: Unchanged at 2.3 x 1.6 x 1.6 cm. Composition: Solid Echogenicity: Hypoechoic Shape: wider than tall. Margins: Smooth Echogenic foci: Macrocalcifications Total points: 5 ACR TI-RADS category: Moderately suspicious Nodule number: 2 Location: Right inferior Size: Unchanged 2.8 x 0.5 x 0.8 cm. Composition: Solid Echogenicity: Isoechoic Shape: wider than tall. Margins: Smooth Echogenic foci: None Total points: 3 ACR TI-RADS category: Mildly suspicious IMPRESSION: Stable appearance of bilateral thyroid nodules. Recommend continued followup ultrasound as detailed below. ACR TI-RADS definitions and recommendations: TI-RADS 1 (benign): 0 points. FNA not needed. TI-RADS 2 (not suspicious): 2 points. FNA not needed. TI-RADS 3 (mildly suspicious): 3 points. * FNA if 2.5 cm or larger, follow up if 1.5 cm or larger (at 1, 3, and 5 years). TI-RADS 4 (moderately suspicious): 4-6 points. * FNA if 1.5 cm or larger, follow up if 1 cm or larger (at 1, 2, 3, and 5 years). TI-RADS 5 (highly suspicious): 7 points or more. * FNA if 1 cm or larger, follow up if 0.5 cm or larger (every year for 5 years). Dictated by: Ron JENNINGS Interpreted: Jeremias Diego MD on 04/24/2020 at 13:33 Approved by: Jeremias Diego M.D. on 04/24/2020 at 13:53
== END ==
PROVIDERS: PCP Internal Medicine; Referring Provider Internal Medicine; Visit Provider Internal Medicine
DX: E04.2 Nontoxic multinodular goiter (principal)
CPT/HCPCS: 76536

== ENCOUNTER 2020-07-04 13:41 | Emergency (ER) | payer OTHER, SELFPAY ==
[2020-07-04] VITALS (8 sets, daily range): BP systolic 122–167; BP diastolic 65–83; PULSE 61–73; RESP 13–24; O2SAT 99–100; BMI 25.7
--- NOTE | 2020-07-04 13:53 | DI.RAD.S_ITS ---
PROCEDURE: XR CHEST 1V INDICATIONS: chest pain TECHNIQUE: One view of the chest was acquired. COMPARISON: [facility], CR, XR CHEST 1V, 01/11/2019, 14:59. FINDINGS: Surgical changes and devices: None. Lungs and pleura: On this semiupright portable chest examination, no large pneumothorax or large pleural effusions are seen. No focal infiltrates are seen. Mediastinum: The cardiac contours are within normal limits. The aorta demonstrates calcification and tortuosity. Bones and chest wall: Age-appropriate bony degenerative changes are seen. No suspicious bony lesions. Overlying soft tissues appear unremarkable. IMPRESSION: Portable chest within normal limits. Dictated by: Charlie Lucas M.D. on 07/04/2020 at 13:25 Approved by: Charlie Lucas M.D. on 07/04/2020 at 13:26
[2020-07-04 14:44] LABS: Add Manual Diff / Slide Review NO; Basophils Absolute Auto 0 /uL (0-100); Basophils Percent Auto 0.8 % (0-2); Eosinophils Absolute Auto 100 /uL (0-450); Eosinophils Percent Auto 1.4 % (2-4); Hematocrit 38.8 % (36-46); Hemoglobin 13.1 g/dL (12.0-16.0); Lymphocytes Absolute Auto 1100 /uL (1100-4500); Lymphocytes Percent Auto 18.1 % (25-40); Mean Corpuscular HGB Conc 33.8 % (30-36); Mean Corpuscular Hemoglobin 30.5 PG (26-34); Monocytes Absolute Auto 400 /uL (0-900); Monocytes Percent Auto 6.6 % (3-14); Neutrophils Absolute Auto 4700 /uL (1500-7000); Neutrophils Percent Auto 73.1 % (50-75); Platelet Count 194 X10^3/uL (150-400); Red Blood Cell Count 4.31 X10^6/uL (4.0-5.2); Red Cell Distribution Width 13.5 % (11.6-14.8); White Blood Cell Count 6.4 X10^3/uL (4.5-11.0)
[2020-07-04 14:52] LABS: Prothrombin Time 12.1 SECONDS (10.1-12.7)
[2020-07-04 14:54] LABS: PTT Partial Thromboplastin Tim 38 SECONDS (26.4-36.2)
[2020-07-04 14:56] LABS: Alanine Aminotransferase 23 IU/L (<35); Albumin 4.1 g/dL (3.5-5.0); Albumin Globulin Ratio 1.4 (1.0-2.8); Alkaline Phosphatase 73 U/L (38-126); Aspartate Aminotransferase 31 IU/L (14-36); BUN Creatinine Ratio 30.5 (6-22); Bilirubin Total 0.3 mg/dL (0.2-1.3); Blood Urea Nitrogen 25 mg/dL (7-17); Calcium 9.5 mg/dL (8.4-10.2); Carbon Dioxide 28 mmol/L (22-32); Chloride 106 mmol/L (98-107); Creatine Kinase 60 U/L (30-135); Estimated Glomerular Filt Rate > 60.0 mL/min (>60); Glucose 95 mg/dL (80-110); HEMOLYSIS < 15 (0-50); Lipase 90 U/L (23-300); Potassium 4.4 mmol/L (3.4-5.1); Sodium 140 mmol/L (137-145); Total Protein 7.1 g/dL (6.3-8.2)
[2020-07-04 15:07] LABS: Troponin I < 0.012 ng/mL (0.01-0.034)
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
[2020-07-04] MEDS: ALBUTEROL HFA 200 PUFF/18 GM INH (COVID POS/VENT PTS) INH (16:14)
== END 2020-07-04 17:28 | disposition home or self-care (01) ==
PROVIDERS: Emergency Provider Emergency Medicine; PCP Internal Medicine
DX: J45.909 Unspecified asthma, uncomplicated (principal)
CPT/HCPCS: 36415; 71045; 80053; 82550; 83690; 84484; 85025; 85610; 85730; 93005; 94640; 99284; A9270

== ENCOUNTER → 2020-08-04 19:34 | Outpatient (ROUT) | payer OTHER, SELFPAY ==
[2020-08-04 20:23] LABS: Alanine Aminotransferase 21 IU/L (<35); Albumin 4.2 g/dL (3.5-5.0); Albumin Globulin Ratio 1.4 (1.0-2.8); Alkaline Phosphatase 62 U/L (38-126); Aspartate Aminotransferase 27 IU/L (14-36); BUN Creatinine Ratio 29.2 (6-22); Bilirubin Total 0.6 mg/dL (0.2-1.3); Blood Urea Nitrogen 26 mg/dL (7-17); Calcium 9.7 mg/dL (8.4-10.2); Carbon Dioxide 31 mmol/L (22-32); Chloride 104 mmol/L (98-107); Cholesterol 168 mg/dL (140-199); Estimated Glomerular Filt Rate > 60.0 mL/min (>60); Glucose 92 mg/dL (80-110); HDL Cholesterol 70 mg/dL (40-60); HEMOLYSIS < 15 (0-50); LDL Cholesterol Calculated 85 mg/dL (<100); Potassium 4.5 mmol/L (3.4-5.1); Sodium 140 mmol/L (137-145); Total Protein 7.2 g/dL (6.3-8.2); Triglycerides 63 mg/dL (35-150)
[2020-08-04 20:29] LABS: Add Manual Diff / Slide Review NO; Basophils Absolute Auto 100 /uL (0-100); Basophils Percent Auto 1.2 % (0-2); Eosinophils Absolute Auto 200 /uL (0-450); Eosinophils Percent Auto 3.3 % (2-4); Hematocrit 41.5 % (36-46); Hemoglobin 13.8 g/dL (12.0-16.0); Lymphocytes Absolute Auto 1300 /uL (1100-4500); Lymphocytes Percent Auto 23.8 % (25-40); Mean Corpuscular HGB Conc 33.3 % (30-36); Mean Corpuscular Hemoglobin 30.3 PG (26-34); Mean Corpuscular Volume 90.9 fL (80-100); Monocytes Absolute Auto 500 /uL (0-900); Monocytes Percent Auto 8.5 % (3-14); Neutrophils Absolute Auto 3600 /uL (1500-7000); Neutrophils Percent Auto 63.2 % (50-75); Platelet Count 205 X10^3/uL (150-400); Red Blood Cell Count 4.57 X10^6/uL (4.0-5.2); Red Cell Distribution Width 13.7 % (11.6-14.8); White Blood Cell Count 5.7 X10^3/uL (4.5-11.0)
== END ==
PROVIDERS: PCP Internal Medicine; Visit Provider Internal Medicine
DX: R10.11 Right upper quadrant pain (principal); E78.2 Mixed hyperlipidemia
CPT/HCPCS: 80053; 80061; 85025

== ENCOUNTER → 2020-09-15 10:20 | Outpatient (CLI) | payer OTHER, SELFPAY | PROVIDERS: PCP Internal Medicine; Referring Provider Internal Medicine; Visit Provider Internal Medicine | DX: M85.88 Other specified disorders of bone density and structure, other site (principal); Z78.0 Asymptomatic menopausal state; E07.9 Disorder of thyroid, unspecified; Z82.62 Family history of osteoporosis | CPT/HCPCS: 77080 ==

== ENCOUNTER → 2021-07-28 15:06 | Outpatient (CLI) | payer MEDICARE, SELFPAY ==
--- NOTE | 2021-07-28 | DI.MG.S_ITS ---
BILATERAL DIGITAL SCREENING MAMMOGRAM 3D/2D WITH CAD: 07/28/2021 CLINICAL: Routine screening. Comparison is made to exams dated: 08/14/2018 mammogram, 03/11/2017 mammogram, and 01/03/2015 mammogram - [facility]. There are scattered fibroglandular elements in both breasts. Current study was also evaluated with a Computer Aided Detection (CAD) system. No significant masses, calcifications, or other findings are seen in either breast. There has been no significant interval change. IMPRESSION: NEGATIVE There is no mammographic evidence of malignancy. A 1 year screening mammogram is recommended. This exam was interpreted at Station ID: [id number]. NOTE: For mammograms, a report in lay terms will be sent to the patient. Approximately 15% of breast malignancies will not be visualized mammographically. In the management of a palpable breast mass, a negative mammogram must not discourage biopsy of a clinically suspicious lesion. Electronically Signed By: Melecio Walker M.D., jr/j luis:07/28/2021 15:46:52 letter sent: Normal Exam ACR BI-RADS Category 1: Negative [id number]
== END ==
PROVIDERS: PCP Internal Medicine; Referring Provider Internal Medicine; Visit Provider Internal Medicine
DX: Z12.31 Encounter for screening mammogram for malignant neoplasm of breast (principal)
CPT/HCPCS: 77063; 77067

== ENCOUNTER → 2021-10-30 08:05 | Outpatient (CLI) | payer MEDICARE, SELFPAY ==
[2021-10-30 09:32] LABS: Add Manual Diff / Slide Review NO; Basophils Absolute Auto 0 /uL (0-100); Eosinophils Absolute Auto 100 /uL (0-450); Eosinophils Percent Auto 3.2 % (2-4); Hematocrit 38.8 % (36-46); Hemoglobin 13.2 g/dL (12.0-16.0); Lymphocytes Absolute Auto 1300 /uL (1100-4500); Lymphocytes Percent Auto 30.1 % (25-40); Mean Corpuscular Hemoglobin 30.2 PG (26-34); Mean Corpuscular Volume 88.8 fL (80-100); Monocytes Absolute Auto 300 /uL (0-900); Monocytes Percent Auto 6.7 % (3-14); Neutrophils Absolute Auto 2500 /uL (1500-7000); Platelet Count 189 X10^3/uL (150-400); Red Blood Cell Count 4.37 X10^6/uL (4.0-5.2); Red Cell Distribution Width 14.2 % (11.6-14.8); White Blood Cell Count 4.2 X10^3/uL (4.5-11.0)
[2021-10-30 10:06] LABS: Alanine Aminotransferase 16 IU/L (<35); Albumin Globulin Ratio 1.5 (1.0-2.8); Alkaline Phosphatase 53 U/L (38-126); Aspartate Aminotransferase 25 IU/L (14-36); BUN Creatinine Ratio 29.3 (6-22); Bilirubin Total 0.5 mg/dL (0.2-1.3); Blood Urea Nitrogen 24 mg/dL (7-17); Calcium 9.3 mg/dL (8.4-10.2); Carbon Dioxide 26 mmol/L (22-32); Chloride 110 mmol/L (98-107); Cholesterol 153 mg/dL (140-199); Estimated Glomerular Filt Rate > 60.0 mL/min (>60); Globulin 2.7 g/dL (1.7-4.1); Glucose 91 mg/dL (80-110); HDL Cholesterol 62 mg/dL (40-60); HEMOLYSIS < 15 (0-50); LDL Cholesterol Calculated 80 mg/dL (<100); Potassium 4.1 mmol/L (3.4-5.1); Sodium 141 mmol/L (137-145); Total Protein 6.7 g/dL (6.3-8.2); Triglycerides 53 mg/dL (35-150)
[2021-10-30 10:31] LABS: TSH w/ Reflex to FT4 3.17 uIU/mL (0.47-4.68)
[2021-11-02 16:40] LABS: Hep C Virus Ab w/Reflex Quant NEGATIVE s/c (NEGATIVE)
== END ==
PROVIDERS: PCP Internal Medicine; Referring Provider Internal Medicine; Visit Provider Internal Medicine
DX: E04.1 Nontoxic single thyroid nodule (principal); I10 Essential (primary) hypertension; E78.2 Mixed hyperlipidemia; Z11.59 Encounter for screening for other viral diseases
CPT/HCPCS: 36415; 80053; 80061; 84443; 85025; 86803

== ENCOUNTER → 2021-12-22 13:35 | Outpatient (CLI) | payer MEDICARE, SELFPAY ==
[2021-12-22 14:26] LABS: Alanine Aminotransferase 16 IU/L (<35); Albumin 4.1 g/dL (3.5-5.0); Albumin Globulin Ratio 1.4 (1.0-2.8); Alkaline Phosphatase 69 U/L (38-126); Aspartate Aminotransferase 26 IU/L (14-36); Bilirubin Total 0.3 mg/dL (0.2-1.3); Bilirubin Unconjugated 0.3 mg/dL (0.0-1.1); Globulin 2.9 g/dL (1.7-4.1); HEMOLYSIS < 15 (0-50)
== END ==
PROVIDERS: PCP Internal Medicine; Referring Provider Internal Medicine; Visit Provider Internal Medicine
DX: B35.1 Tinea unguium (principal)
CPT/HCPCS: 36415; 80076

== ENCOUNTER → 2021-12-31 14:36 | Outpatient (CLI) | payer MEDICARE, SELFPAY ==
--- NOTE | 2021-12-31 14:38 | DI.US.S_ITS ---
PROCEDURE: US THYROID INDICATIONS: THYROID NODULE TECHNIQUE: Real-time scanning was performed of the thyroid gland, with image documentation. COMPARISON: [facility], US, US THYROID, 04/24/2020, 10:58. FINDINGS: Right: Thyroid lobe measures 4.4 x 1.2 x 1.2 cm, and demonstrates a nodule inferiorly Left: Thyroid lobe measures 4.9 x 1.2 x 1.8 cm, and is demonstrates a nodule inferiorly. Isthmus: 2.6 mm thick. Nodule number: 1 Location: Left inferior thyroid Size: 2.1 x 1.3 x 1.5 cm. Composition: Solid Echogenicity: Hypoechoic Shape: wider than tall. Margins: Smooth Echogenic foci: Peripheral calcifications including a calcific nodule Total points: 7 ACR TI-RADS category: 5 Recommendations: Fine-needle aspiration Nodule number: 2 Location: Right inferior thyroid Size: 0.7 x 0.4 x 0.7 cm. Composition: Solid Echogenicity: Isoechoic Shape: wider than tall. Margins: Smooth Echogenic foci: None Total points: 3 ACR TI-RADS category: 3 Recommendations: No further follow-up necessary based on size. IMPRESSION: 1. Fine-needle aspiration of left inferior thyroid nodule is recommended as above. Dictated by: Isrrael Eldridge M.D. on 12/31/2021 at 15:17 Approved by: Isrrael Eldridge M.D. on 12/31/2021 at 17:01
== END ==
PROVIDERS: PCP Internal Medicine; Referring Provider Internal Medicine; Visit Provider Internal Medicine
DX: E04.2 Nontoxic multinodular goiter (principal)
CPT/HCPCS: 76536

== ENCOUNTER → 2022-06-25 08:53 | Outpatient (CLI) | payer MEDICARE, SELFPAY ==
[2022-06-25 10:00] LABS: Hematocrit 37.9 % (36-46); Hemoglobin 12.9 g/dL (12.0-16.0); Mean Corpuscular Hemoglobin 30.3 PG (26-34); Mean Corpuscular Volume 89.2 fL (80-100); Platelet Count 194 X10^3/uL (150-400); Red Blood Cell Count 4.24 X10^6/uL (4.0-5.2); White Blood Cell Count 4.7 X10^3/uL (4.5-11.0)
[2022-06-25 10:44] LABS: Alanine Aminotransferase 16 IU/L (<35); Albumin Globulin Ratio 1.5 (1.0-2.8); Alkaline Phosphatase 61 U/L (38-126); Aspartate Aminotransferase 24 IU/L (14-36); BUN Creatinine Ratio 29.3 (6-22); Bilirubin Total 0.4 mg/dL (0.2-1.3); Blood Urea Nitrogen 24 mg/dL (7-17); Calcium 9.3 mg/dL (8.4-10.2); Carbon Dioxide 27 mmol/L (22-32); Chloride 108 mmol/L (98-107); Cholesterol 138 mg/dL (140-199); Estimated Glomerular Filt Rate > 60 mL/min (>60); Globulin 2.7 g/dL (1.7-4.1); Glucose 91 mg/dL (80-110); HDL Cholesterol 65 mg/dL (40-60); HEMOLYSIS < 15 (0-50); LDL Cholesterol Calculated 64 mg/dL (<100); Potassium 4.9 mmol/L (3.4-5.1); Sodium 141 mmol/L (137-145); Total Protein 6.7 g/dL (6.3-8.2); Triglycerides 44 mg/dL (35-150)
[2022-06-25 11:09] LABS: TSH w/ Reflex to FT4 0.22 uIU/mL (0.47-4.68)
[2022-06-25 12:10] LABS: Free T4, Direct Thyroxine 1.16 ng/dL (0.78-2.19)
== END ==
PROVIDERS: PCP Internal Medicine; Referring Provider Internal Medicine; Visit Provider Internal Medicine
DX: E78.2 Mixed hyperlipidemia (principal); I48.0 Paroxysmal atrial fibrillation
CPT/HCPCS: 36415; 80053; 80061; 84439; 84443; 85027

== ENCOUNTER → 2022-10-06 14:17 | Outpatient (CLI) | payer MEDICARE, SELFPAY ==
--- NOTE | 2022-10-06 | DI.MG.S_ITS ---
BILATERAL DIGITAL SCREENING MAMMOGRAM 3D/2D WITH CAD: 10/06/2022 CLINICAL: Routine screening. Comparison is made to exams dated: 07/28/2021 mammogram, 08/14/2018 mammogram, and 03/11/2017 mammogram - [facility]. There are scattered areas of fibroglandular density in both breasts (category b / 25%-50% glandular tissue). Current study was also evaluated with a Computer Aided Detection (CAD) system. No significant masses, calcifications, or other findings are seen in either breast. There has been no significant interval change. IMPRESSION: NEGATIVE There is no mammographic evidence of malignancy. A 1 year screening mammogram is recommended. Based on the Tyrer Cuzick model (a risk assessment model) the patient's lifetime risk is 4.4% and her 10 year risk is 3.0%. According to the ACR, ACS, and NCCN guidelines, an annual breast MRI exam along with mammogram is recommended if the patient's lifetime risk is 20% or greater. This exam was interpreted at Station ID: [id number]. NOTE: For mammograms, a report in lay terms will be sent to the patient. Approximately 15% of breast malignancies will not be visualized mammographically. In the management of a palpable breast mass, a negative mammogram must not discourage biopsy of a clinically suspicious lesion. Electronically Signed By: Melecio Walker M.D., jr/j luis:10/07/2022 12:34:59 letter sent: Normal Exam ACR BI-RADS Category 1: Negative [id number]
== END ==
PROVIDERS: PCP Internal Medicine; Referring Provider Internal Medicine; Visit Provider Internal Medicine
DX: Z78.0 Asymptomatic menopausal state (principal); Z12.31 Encounter for screening mammogram for malignant neoplasm of breast; M85.88 Other specified disorders of bone density and structure, other site
CPT/HCPCS: 77063; 77067; 77080

== ENCOUNTER → 2022-12-14 11:44 | Outpatient (CLI) | payer MEDICARE, SELFPAY ==
--- NOTE | 2022-12-14 | DI.MRI.S_ITS ---
PROCEDURE: MR KNEE RT WO CON INDICATIONS: Pain in right knee TECHNIQUE: Noncontrast sagittal PD fast spin echo and T2 fast spin echo with fat saturation, sagittal 3-D FLASH with fat saturation; coronal T1 spin echo and PD fast spin echo with fat saturation, and axial PD fast spin echo with fat saturation through the knee. COMPARISON: [facility] [place], CR, XR KNEE 4+ VIEWS RIGHT, 07/26/2012, 10:26. [facility], MR, KNEE WITHOUT CONTRAST, 07/31/2012, 13:13. FINDINGS: Image quality: Excellent. Menisci: Medial extrusion of the medial meniscus is present. There is oblique and horizontal linear high T2 signal intensity traversing the inner, middle, and peripheral thirds of the medial meniscal body and posterior horn, demonstrating inferior articular surface extension, indicating complex tearing. Radial tearing of the posterior horn medial meniscus at the meniscal root ligament insertion site is present. Lateral meniscus is intact. Cruciate ligaments: The anterior and posterior cruciate ligaments appear intact. Medial structures: The medial collateral ligament appears intact. Visualized portions of the pes anserinus tendons appear normal. No abnormal bursal fluid. There is moderate T2 signal elevation within and adjacent to the tibial insertion site of the semimembranosus. Lateral structures: The lateral collateral ligament demonstrates mild internal T2 signal elevation at the femoral origin. The long and short heads of the biceps femoris tendon appear intact. The popliteus tendon appears normal. Iliotibial band appears normal. Anterior structures: The quadriceps and patellar tendons appear intact. Patellar alignment is normal. No femoral trochlear dysplasia or ventral trochlear prominence. No edema in the infrapatellar fat pad. Bones and cartilage: No bone marrow contusions or fractures. There is mild subchondral degenerative marrow edema within the weight-bearing aspects of the medial femoral condyle and medial tibial plateau. Mild tricompartmental periarticular osteophyte formation. Severe articular cartilage loss diffusely overlies the weight-bearing aspects of the medial femoral condyle and medial tibial plateau. Severe articular cartilage loss overlies the patellar apex and adjacent portions of the medial patellar facet. Joint space: There is a small knee joint effusion and a small Meredith's cyst. There is an intra-articular loose body within the Meredith's cyst measuring roughly 6 mm diameter. Normal appearing synovial plicae are incidentally noted. IMPRESSION: 1. Tricompartmental osteoarthritis with associated articular cartilage loss. 2. Medial meniscal tearing. 3. Low-grade partial thickness lateral collateral ligament tear. 4. Knee joint effusion and Meredith's cyst with intra-articular loose body. Dictated by: Isrrael Eldridge M.D. on 12/14/2022 at 13:12 Transcribed by: SETH on 12/14/2022 at 13:14 Approved by: Isrrael Eldridge M.D. on 12/14/2022 at 16:29
== END ==
PROVIDERS: PCP Internal Medicine; Referring Provider Student in an Organized Health Care Education/Training Program; Visit Provider Student in an Organized Health Care Education/Training Program
DX: S83.231A Complex tear of medial meniscus, current injury, right knee, initial encounter (principal); S83.421A Sprain of lateral collateral ligament of right knee, initial encounter; M17.11 Unilateral primary osteoarthritis, right knee; M25.561 Pain in right knee; M71.21 Synovial cyst of popliteal space [Baker], right knee; M25.461 Effusion, right knee
CPT/HCPCS: 73721

== ENCOUNTER 2023-02-20 19:08 | Emergency (ER) | payer MEDICARE, SELFPAY ==
[2023-02-20 19:19] VITALS: PULSE 72; O2SAT 98
[2023-02-20 19:23] VITALS: BP 160/76; PULSE 71; RESP 18; TEMP 36.6; O2SAT 97; BMI 27.1
[2023-02-20 19:30] VITALS: BP 133/64; PULSE 68; O2SAT 96
--- NOTE | 2023-02-20 19:39 | ED_ITS ---
HPI - Extremity Problem General Chief complaint: Extremity Problem,Nontraumatic Stated complaint: knee surgery on tue, bruising and hot spots Time Seen by Provider: 02/20/23 19:27 Source: patient Mode of arrival: Ambulatory History of Present Illness HPI Narrative: Patient is a 72-year-old female who had recent partial total knee at [facility] 4 days ago. Postoperatively she had an episode of atrial fibrillation she was put on Eliquis and metoprolol. Today she started noticing increasing bruising around her knee and like tender medial knee. Her calf is a little bit swollen not significantly tender. She just started taking Eliquis 2 days ago. Denies any fever chills. Worried about the bruising and redness. Related Data Previous Rx's Medication Instructions Recorded rosuvastatin 20 mg tablet (Crestor) 20 mg PO DAILY #90 tabs 06/25/22 terbinafine HCl 250 mg tablet 250 mg PO DAILY #14 tabs 06/25/22 Allergies Allergy/AdvReac Type Severity Reaction Status Date / Time No Known Drug Allergies Allergy Verified 07/05/22 15:12 Review of Systems Review of Systems ROS Unobtainable: All systems reviewed & are unremarkable except as noted in HPI and below Patient History Medical History Advanced directives, counseling/discussion COVID-19 GERD without esophagitis History of retinal hemorrhage Left thyroid nodule Medicare annual wellness visit, initial Mixed hyperlipidemia Osteopenia Paroxysmal atrial fibrillation Tinea unguium Trigger finger, left ring finger Surgical History Status post colonoscopy Family History Father Atrial fibrillation Brother Atrial fibrillation Social History details: , retired pharmacist household members: spouse and significant other Smoking Status: Never smoker Smoking Status: Never smoker alcohol intake frequency: holidays/special occasions only Substance Use Type: does not use Exam Initial Vital Signs Initial Vital Signs: Vital Signs Pulse Rate 72 02/20/23 19:19 Pulse Oximetry 98 02/20/23 19:19 GENERAL: Alert 72-year-old female no acute distress CARDIOVASCULAR: peripheral pulses in tact, cap refill <2 sec RESPIRATORY: No respiratory distress, speaks in full sentences without difficulty EXTREMITIES: Normal range of motion, no clubbing or edema. Neurovascularly intact Right lower leg postop bandage is placed is some minimal erythema medial side and some erythema left medial thigh as well no significant pain blanchable some contusion noted in anterior don. Distal pedal pulse is present NEUROLOGICAL: Cranial nerves II through XII grossly intact. Normal gait and speech. SKIN: Warm, dry, no petechiae, no rashes or lesions. Course Orders Ordered: ED Orders 02/20/23 19:55 US periph venous low extrem rt Stat Vital Signs Vital signs: Vital Signs - 8 hr 02/20/23 19:23 02/20/23 19:19 02/20/23 19:30 Temperature 97.8 F Pulse Rate 71 72 Respiratory Rate 18 Blood Pressure 160/76 H 133/64 Pulse Oximetry 97 98 Oxygen Delivery Method Room Air 02/20/23 19:30 02/20/23 20:00 02/20/23 20:00 Temperature Pulse Rate 68 68 Respiratory Rate Blood Pressure 117/58 L Pulse Oximetry 96 96 Oxygen Delivery Method 02/20/23 20:30 02/20/23 20:30 Temperature Pulse Rate 66 Respiratory Rate Blood Pressure 110/56 L Pulse Oximetry 97 Oxygen Delivery Method MDM - Extremity (Nontraumatic) MDM Narrative Medical decision making narrative: Patient is a 72-year-old female presenting today for days postop after right partial knee replacement. She has been on Eliquis for the last 2 and half days concerning for bruising. Ultrasound was ordered for full rule out of DVT not really having calf pain there is swelling she is on Eliquis risk is low but still possible. Ultrasound was in the room she is kindly declining the ultrasound now she would like to call her surgeon and follow-up. She is already on Eliquis and the treatment for a DVT, although I don't actually think she has one. She is a little bit of redness no fever no significant concern for infection. Likely postoperative changes. Discharge Plan Departure Patient Disposition: Home Clinical Impression: Postoperative hematoma Instructions: DI for Postoperative Pain Activity Restrictions/Additional Instructions: *You have been diagnosed with postoperative changes *What to do: Your offered an ultrasound today to rule out a blood clot. Please call your doctor tomorrow to make sure that they do not want this *Continue to take medications as directed Please keep taking apixaban as previously prescribed *Follow up with your primary care provider in 2-3 days or call [phone] *Return to ER if you should have increasing pain swelling redness [or] any new, worsening or concerning symptoms Prescriptions: No Action terbinafine HCl 250 mg tablet 250 mg PO DAILY Qty: 14 3RF Rx Instructions: Take two pills for 1 week rosuvastatin [Crestor] 20 mg tablet 20 mg PO DAILY Qty: 90 3RF triamcinolone acetonide [Kenalog] 40 mg/mL suspension 40 mg intrasynovial ONCE Qty: 1 0RF Referrals: Syd Seals MD [Primary Care Provider] - Stand Alone Forms: Patient Portal/API
[2023-02-20 20:00] VITALS: BP 117/58; PULSE 68; O2SAT 96
[2023-02-20 20:30] VITALS: BP 110/56; PULSE 66; O2SAT 97
== END 2023-02-20 20:59 | disposition home or self-care (01) ==
PROVIDERS: Emergency Provider Emergency Medicine; PCP Internal Medicine
DX: M96.840 Postprocedural hematoma of a musculoskeletal structure following a musculoskeletal system procedure (principal)
CPT/HCPCS: 99281

== ENCOUNTER → 2023-08-09 08:29 | Outpatient (CLI) | payer MEDICARE, SELFPAY ==
[2023-08-09 10:19] LABS: Hematocrit 39.2 % (36-46); Mean Corpuscular HGB Conc 33.2 % (30-36); Mean Corpuscular Hemoglobin 29.4 PG (26-34); Mean Corpuscular Volume 88.5 fL (80-100); Platelet Count 193 X10^3/uL (150-400); Red Blood Cell Count 4.43 X10^6/uL (4.0-5.2); White Blood Cell Count 4.1 X10^3/uL (4.5-11.0)
[2023-08-09 10:49] LABS: Alanine Aminotransferase 19 IU/L (<35); Albumin 3.7 g/dL (3.5-5.0); Albumin Globulin Ratio 1.4 (1.0-2.8); Alkaline Phosphatase 57 U/L (38-126); Aspartate Aminotransferase 26 IU/L (14-36); BUN Creatinine Ratio 27.3 (6-22); Bilirubin Total 0.3 mg/dL (0.2-1.3); Blood Urea Nitrogen 24 mg/dL (7-17); Calcium 9.5 mg/dL (8.4-10.2); Carbon Dioxide 28 mmol/L (22-32); Chloride 105 mmol/L (98-107); Cholesterol 148 mg/dL (140-199); Estimated Glomerular Filt Rate > 60 mL/min (>60); Globulin 2.6 g/dL (1.7-4.1); Glucose 88 mg/dL (80-110); HDL Cholesterol 60 mg/dL (40-60); HEMOLYSIS < 15 (0-50); LDL Cholesterol Calculated 75 mg/dL (<100); Potassium 4.3 mmol/L (3.4-5.1); Sodium 139 mmol/L (137-145); Total Protein 6.3 g/dL (6.3-8.2); Triglycerides 66 mg/dL (35-150)
[2023-08-09 11:15] LABS: TSH w/ Reflex to FT4 2.31 uIU/mL (0.47-4.68)
== END ==
PROVIDERS: PCP Internal Medicine; Referring Provider Internal Medicine; Visit Provider Internal Medicine
DX: E78.2 Mixed hyperlipidemia (principal); I48.0 Paroxysmal atrial fibrillation; E04.1 Nontoxic single thyroid nodule
CPT/HCPCS: 36415; 80053; 80061; 84443; 85027

== ENCOUNTER → 2023-09-15 14:13 | Outpatient (CLI) | payer MEDICARE, SELFPAY ==
--- NOTE | 2023-09-15 14:30 | DI.US.S_ITS ---
PROCEDURE: US THYROID INDICATIONS: thyroid nodule followup TECHNIQUE: Real-time scanning was performed of the thyroid gland, with image documentation. COMPARISON: , US, US THYROID, 12/31/2021, 14:49. FINDINGS: Right: Thyroid lobe measures 4.3 x 1.2 x 1.4 cm, and is homogeneous in echotexture. Left: Thyroid lobe measures 4.4 x 1.6 x 2.0 cm, and is homogenous in echotexture. Isthmus: 1.3 mm thick. Nodule number: 1 Location: Left inferior Size: 2.3 x 1.2 x 1.6 cm. Composition: Solid Echogenicity: Hypoechoic Shape: wider than tall. Margins: Irregular Echogenic foci: Peripheral calcification Total points: 8 ACR TI-RADS category: 5 ( Highly suspicious) Nodule number: 2 Location: Right inferior Size: 0.9 x 0.5 x 0.7 cm. Composition: Solid Echogenicity: Isoechoic Shape: wider than tall. Margins: Smooth Echogenic foci: None Total points: 3 ACR TI-RADS category: 3 (mildly suspicious) IMPRESSION: Bilateral thyroid nodules as described above. Largest is seen on the left measuring up to 2.3 cm which has slightly enlarged compared to the prior study. Left thyroid nodule is characterized as a TI-RADS 5 (highly suspicious) nodule. Fine-needle aspiration is recommended if not already accomplished. ACR TI-RADS definitions and recommendations: TI-RADS 1 (benign): 0 points. FNA not needed. TI-RADS 2 (not suspicious): 2 points. FNA not needed. TI-RADS 3 (mildly suspicious): 3 points. * FNA if 2.5 cm or larger, follow up if 1.5 cm or larger (at 1, 3, and 5 years). TI-RADS 4 (moderately suspicious): 4-6 points. * FNA if 1.5 cm or larger, follow up if 1 cm or larger (at 1, 2, 3, and 5 years). TI-RADS 5 (highly suspicious): 7 points or more. * FNA if 1 cm or larger, follow up if 0.5 cm or larger (every year for 5 years). Dictated by: Jonathan Joseph M.D. on 09/15/2023 at 18:01 Approved by: Jonathan Joseph M.D. on 09/15/2023 at 18:05
== END ==
PROVIDERS: PCP Internal Medicine; Referring Provider Internal Medicine; Visit Provider Internal Medicine
DX: E04.2 Nontoxic multinodular goiter (principal)
CPT/HCPCS: 76536

== ENCOUNTER → 2024-02-06 15:16 | Outpatient (CLI) | payer MEDICARE, SELFPAY ==
--- NOTE | 2024-02-06 | DI.MRI.S_ITS ---
PROCEDURE: MR ANKLE RT WO CON INDICATIONS: Posterior tibial tendinitis, right leg TECHNIQUE: Noncontrast sagittal T1 spin echo and T2 fast spin echo with fat saturation, axial proton density fast spin echo and T2 fast spin echo with fat saturation, coronal T1 spin echo and T2 fast spin echo with fat saturation through the ankle/hindfoot. COMPARISON: [facility], MR, ANKLE WITHOUT CONTRAST, 08/08/2017, 9:13. FINDINGS: Image quality: Excellent. Tendons: Mild tenosynovitis of the posterior tibialis, correlating to the pain marker. The flexor digitorum longus, and the flexor hallucis longus are unremarkable. The peroneal, extensor tendon unremarkable. Mild tendinosis of the distal Achilles tendon, without tear. Ligaments: The anterior and posterior tibiofibular ligament is intact. Thickening of the anterior talofibular ligament, representing prior sprain. The posterior talofibular ligament is intact. Thickening of the calcaneofibular ligament, representing prior sprain. Prior sprain of the deep portion of the deltoid ligament, corresponding to the pain marker. Sinus tarsi: No fibrosis. Plantar fascia: Mild thickening of the central cord, which can be seen the setting of plantar fasciitis. Muscles: Unremarkable Bones: Small area of mild subchondral marrow edema in the lateral talus stone, new from prior exam. Mild subchondral cystic changes seen in the lateral cuneiform, degenerative. No significant tibiotalar or posterior subtalar effusion. IMPRESSION: 1. Mild tenosynovitis of the posterior tibialis and mild sprain of the deep portion of the deltoid ligament, corresponding to the pain marker. 2. Prior sprain of the lateral ankle ligaments as described above. 3. Small area of subchondral marrow edema in the lateral talus dome, new from prior exam, nonspecific. Dictated by: Gayla Redding M.D. on 02/06/2024 at 19:24 Approved by: Gayla Redding M.D. on 02/06/2024 at 19:33
== END ==
PROVIDERS: PCP Internal Medicine; Referring Provider Podiatrist; Visit Provider Podiatrist
DX: S93.421A Sprain of deltoid ligament of right ankle, initial encounter (principal); M76.821 Posterior tibial tendinitis, right leg; M65.871 Other synovitis and tenosynovitis, right ankle and foot; Z87.81 Personal history of (healed) traumatic fracture
CPT/HCPCS: 73721

== ENCOUNTER → 2024-07-19 10:35 | Outpatient (CLI) | payer MEDICARE, SELFPAY ==
[2024-07-19 13:08] LABS: Aspartate Aminotransferase 27 IU/L (14-36); BUN Creatinine Ratio 27.7 (6-22); Blood Urea Nitrogen 23 mg/dL (7-17); Calcium 9.7 mg/dL (8.4-10.2); Carbon Dioxide 26 mmol/L (22-32); Chloride 107 mmol/L (98-107); Cholesterol 146 mg/dL (140-199); Estimated Glomerular Filt Rate > 60 mL/min (>60); Glucose 84 mg/dL (80-110); HDL Cholesterol 59 mg/dL (40-60); HEMOLYSIS < 15 (0-50); LDL Cholesterol Calculated 75 mg/dL (<100); Potassium 4.5 mmol/L (3.4-5.1); Sodium 139 mmol/L (137-145); Triglycerides 58 mg/dL (35-150)
[2024-07-19 13:37] LABS: TSH w/ Reflex to FT4 1.94 uIU/mL (0.47-4.68)
== END ==
PROVIDERS: PCP Internal Medicine; Referring Provider Internal Medicine; Visit Provider Internal Medicine
DX: E78.2 Mixed hyperlipidemia (principal); I48.0 Paroxysmal atrial fibrillation; E04.1 Nontoxic single thyroid nodule
CPT/HCPCS: 36415; 80048; 80061; 84443; 84450

== ENCOUNTER → 2024-07-27 14:33 | Outpatient (CLI) | payer MEDICARE, SELFPAY ==
--- NOTE | 2024-07-27 14:34 | DI.MG.S_ITS ---
BILATERAL DIGITAL SCREENING MAMMOGRAM 3D/2D WITH CAD: 07/27/2024 CLINICAL: Routine screening. Comparison is made to exams dated: 10/06/2022 mammogram, 07/28/2021 mammogram, and 08/14/2018 mammogram - [facility]. There are scattered areas of fibroglandular density (category b / 25%-50% glandular tissue). Current study was also evaluated with a Computer Aided Detection (CAD) system. No significant masses, calcifications, or other findings are seen in either breast. There has been no significant interval change. IMPRESSION: NEGATIVE There is no mammographic evidence of malignancy. A 1 year screening mammogram is recommended. Based on the Tyrer Cuzick model (a risk assessment model) the patient's lifetime risk is 3.9% and her 10 year risk is 3.2%. According to the ACR, ACS, and NCCN guidelines, an annual breast MRI exam along with mammogram is recommended if the patient's lifetime risk is 20% or greater. This exam was interpreted at Station ID: [id number]. NOTE: For mammograms, a report in lay terms will be sent to the patient. Approximately 15% of breast malignancies will not be visualized mammographically. In the management of a palpable breast mass, a negative mammogram must not discourage biopsy of a clinically suspicious lesion. Electronically Signed By: Zehra Camarena M.D., Ph.D. [email or web address]/j luis:07/28/2024 00:18:08 letter sent: Normal Exam ACR BI-RADS Category 1: Negative
== END ==
PROVIDERS: PCP Internal Medicine; Referring Provider Internal Medicine; Visit Provider Internal Medicine
DX: Z12.31 Encounter for screening mammogram for malignant neoplasm of breast (principal)
CPT/HCPCS: 77063; 77067

== ENCOUNTER → 2024-12-17 14:25 | Outpatient (CLI) | payer MEDICARE, SELFPAY ==
--- NOTE | 2024-12-17 14:27 | DI.US.S_ITS ---
PROCEDURE: US THYROID INDICATIONS: nodules TECHNIQUE: Real-time scanning was performed of the thyroid gland, with image documentation. COMPARISON: [facility], US, US THYROID, 09/15/2023, 14:21. FINDINGS: Thyroid: Right lobe measures 3.5 x 1.2 x 1.2 cm. Left lobe measures 3.9 x 1.5 x 1.6 cm. Isthmus is 0.3 cm thick. Echotexture is homogeneous. Nodule number: 1 Location: Left mid inferior Size: 2.1 x 1.4 x 1.5 cm. Composition: Solid Echogenicity: Hypoechoic Shape: wider than tall. Margins: Irregular Echogenic foci: Macrocalcifications/peripheral calcifications Total points: 8 ACR TI-RADS category: 5 (highly suspicious) Nodule number: 2 Location: Right inferior Size: 0.7 x 0.7 x 0.7 cm. Composition: Solid Echogenicity: Isoechoic Shape: wider than tall. Margins: Smooth Echogenic foci: None Total points: 3 ACR TI-RADS category: 3 (mildly suspicious) IMPRESSION: Bilateral thyroid nodules as described above. These are stable to minimally less prominent compared to the prior study. No new suspicious thyroid nodules identified. Based on consensus criteria, left mid/inferior thyroid nodule is categorized as a TI-RADS 5 (Highly Suspicious) nodule and further evaluation with fine-needle aspiration is recommended if not already accomplished. The right thyroid nodule is below threshold size limits for continued imaging follow-up. ACR TI-RADS definitions and recommendations: TI-RADS 1 (benign): 0 points. FNA not needed. TI-RADS 2 (not suspicious): 2 points. FNA not needed. TI-RADS 3: 3 points. * FNA if 2.5 cm or larger, follow up if 1.5 cm or larger (at 1, 3, and 5 years). TI-RADS 4: 4-6 points. * FNA if 1.5 cm or larger, follow up if 1 cm or larger (at 1, 2, 3, and 5 years). TI-RADS 5: 7 points or more. * FNA if 1 cm or larger, follow up if 0.5 cm or larger (every year for 5 years). Dictated by: Jonathan Joseph M.D. on 12/17/2024 at 19:32 Approved by: Jonathan Joseph M.D. on 12/17/2024 at 19:41
== END ==
PROVIDERS: PCP Internal Medicine; Referring Provider Internal Medicine; Visit Provider Internal Medicine
DX: E04.1 Nontoxic single thyroid nodule (principal)
CPT/HCPCS: 76536

== ENCOUNTER → 2025-05-16 16:44 | Outpatient (CLI) | payer MEDICARE, SELFPAY ==
[2025-05-16 17:55] LABS: Hematocrit 40.1 % (36-46); Hemoglobin 13.5 g/dL (12.0-16.0); Mean Corpuscular HGB Conc 33.7 % (30-36); Mean Corpuscular Hemoglobin 30.4 PG (26-34); Mean Corpuscular Volume 90.1 fL (80-100); Platelet Count 204 X10^3/uL (150-400)
[2025-05-16 18:14] LABS: HEMOLYSIS < 15 (0-50)
[2025-05-16 18:22] LABS: Blood Urea Nitrogen 25 mg/dL (7-17); Calcium 9.5 mg/dL (8.4-10.2); Carbon Dioxide 24 mmol/L (22-32); Chloride 106 mmol/L (98-107); Creatine Kinase 134 U/L (30-135); Estimated Glomerular Filt Rate > 60 mL/min (>60); Glucose 88 mg/dL (70-99); Potassium 4.2 mmol/L (3.4-5.1); Sodium 139 mmol/L (137-145)
[2025-05-16 18:55] LABS: TSH w/ Reflex to FT4 3.14 uIU/mL (0.47-4.68)
[2025-05-19 05:36] LABS: ANA Screen, IFA Negative (.)
== END ==
PROVIDERS: PCP Internal Medicine; Referring Provider Internal Medicine; Visit Provider Internal Medicine
DX: E78.2 Mixed hyperlipidemia (principal); M35.3 Polymyalgia rheumatica; I48.0 Paroxysmal atrial fibrillation; M60.9 Myositis, unspecified; M13.0 Polyarthritis, unspecified
CPT/HCPCS: 36415; 80048; 82550; 84443; 85027; 85651; 86038; 86140; 86200; 86430

== ENCOUNTER → 2025-07-24 10:58 | Outpatient (CLI) | payer MEDICARE, SELFPAY ==
[2025-07-24 12:54] LABS: Blood Urea Nitrogen 23 mg/dL (7-17); Calcium 9.8 mg/dL (8.4-10.2); Carbon Dioxide 27 mmol/L (22-32); Chloride 104 mmol/L (98-107); Cholesterol 151 mg/dL (140-199); Estimated Glomerular Filt Rate > 60 mL/min (>60); Glucose 88 mg/dL (70-99); HDL Cholesterol 69 mg/dL (40-60); HEMOLYSIS < 15 (0-50); Potassium 5.0 mmol/L (3.4-5.1); Sodium 139 mmol/L (137-145); Triglycerides 79 mg/dL (35-150)
[2025-07-24 13:23] LABS: TSH w/ Reflex to FT4 2.20 uIU/mL (0.47-4.68)
== END ==
PROVIDERS: PCP Internal Medicine; Referring Provider Internal Medicine; Visit Provider Internal Medicine
DX: E78.2 Mixed hyperlipidemia (principal); E04.1 Nontoxic single thyroid nodule; I48.0 Paroxysmal atrial fibrillation
CPT/HCPCS: 36415; 80048; 80061; 84443; 84450

== ENCOUNTER → 2025-08-06 13:46 | Outpatient (CLI) | payer MEDICARE, SELFPAY ==
--- NOTE | 2025-08-06 13:49 | DI.RAD.S_ITS ---
PROCEDURE: XR DEXA AXIAL SKELETON INDICATIONS: osteopenia COMPARISON: [facility], , XR DEXA AXIAL SKELETON, 10/06/2022, 14:37. FINDINGS: Lumbar Spine: Bone mineral density 0.862 g/cm2, T score -1.7, Z-score 0.7, osteopenia. BMD change versus baseline -0.051 (-5.6%). BMD change versus previous +0.008 (1.0%) Left Femoral Neck: Bone mineral density 0.619 g/cm2, T score -2.1, Z-score 0.0, osteopenia. BMD change versus baseline -0.068 (-9.9%). BMD change versus previous-0.013 (-2.0%). Left Hip: Bone mineral density 0.738 g/cm2, T score -1.7, Z-score 0.1, osteopenia. BMD change versus baseline -0.124 (-14.4%). BMD change versus previous +0.002 (0.3%). Fracture Risk Calculation (when applicable): 10-year fracture risk of a major osteoporotic fracture 23% without prior fracture, 33% with prior fracture and of a hip fracture 13% without prior fracture, 18% with prior fracture. (T score greater or equal to -1.0 to: NORMAL) (T score from -1.1 to -2.4: OSTEOPENIA) (T score less than or equal to -2.5: OSTEOPOROSIS) IMPRESSION: Osteopenia as discussed above. Follow-up guidelines as follows: Osteoporosis: Consider a repeat DEXA and Vertebral Fracture Assessment (VFA) exam in 2 years or sooner if medically necessary, to reassess this patient's status. Osteopenia: Consider a repeat DEXA in 2-3 years to reassess this patient's status, or if there is a new clinical indication. Normal: Consider a repeat DEXA in 5 years or sooner, or if there is a new clinical indication. All treatment decisions require clinical judgment and consideration of individual patient factors, including patient preferences, comorbidities, previous drug use, risk factors not captured in the FRAX model (e.g., frailty, falls, vitamin D deficiency, increased bone turnover, interval significant decline in bone density ) and possible under- or over-estimation of fracture risk by FRAX. In addition, the NOF Guide recommends that FDA-approved medical therapies be considered in postmenopausal women and men age >= 50 years with a: * Hip or vertebral (clinical or morphometric) fracture * T-score of <=-2.5 at the spine or hip * Ten-year fracture probability by FRAX of >= 3% for hip fracture or >=20% for major osteoporotic fracture. Dictated by: John Martinez M.D. on 08/08/2025 at 13:32 Approved by: John Martinez M.D. on 08/08/2025 at 13:51
== END ==
LOC: RAD 13:47
PROVIDERS: PCP Internal Medicine; Referring Provider Internal Medicine; Visit Provider Internal Medicine
DX: M85.89 Other specified disorders of bone density and structure, multiple sites (principal)
CPT/HCPCS: 77080

== ENCOUNTER → 2025-09-13 13:00 | Outpatient (CLI) | payer MEDICARE, SELFPAY ==
--- NOTE | 2025-09-13 13:01 | DI.MG.S_ITS ---
MM screening mammo BI: 09/13/2025. BI-RADS: 1 CLINICAL: 75-year old female for bilateral screening mammogram. Tyrer-Cuzick lifetime risk of 4.8%. No personal or first-degree family history of breast cancer. PRIOR EXAMS 07/27/2024, 10/06/2022, 07/28/2021, 08/14/2018. MAMMOGRAPHY TECHNIQUE: 2D and 3D (tomosynthesis) digital mammographic views obtained, with additional images as needed for full coverage. Current study was also evaluated with a Computer Aided Detection (CAD) system. DENSITY C. The breasts are heterogeneously dense, which may obscure small masses. MAMMOGRAPHY FINDINGS Bilateral: No suspicious mass, asymmetry, microcalcification, or other abnormality seen. IMPRESSION: * No evidence of malignancy. RECOMMENDATIONS Bilateral * Annual screening mammography. OVERALL ASSESSMENT CATEGORY BI-RADS-1: Negative. The [employer] recommends annual screening mammography beginning at age 40 for women with average risk of breast cancer. ELECTRONICALLY SIGNED: Jonathan Joseph M.D. on 09/13/2025 at 11:43:51 PM PT Interpreting Station ID: [id number]
== END ==
LOC: MAMMO 13:01
PROVIDERS: PCP Internal Medicine; Referring Provider Internal Medicine; Visit Provider Internal Medicine
DX: Z12.31 Encounter for screening mammogram for malignant neoplasm of breast (principal); R92.333 Mammographic heterogeneous density, bilateral breasts
CPT/HCPCS: 77063; 77067